=== PATIENT | female | born 1960 | race Two or more races ===

== ENCOUNTER → 2024-12-24 | Outpatient (CLI) | payer MEDICARE, MEDICAID, SELFPAY ==
--- NOTE | 2024-12-24 14:45 | XR_ITS ---
Examination: Breast ultrasound complete, bilateral Date and time of exam: December 24, 2024 1359 hours INDICATIONS: Family history breast cancer, sister, bilateral breast sonography January 28, 2024 right breast retroareolar nodule 6 mm, 5 mm left breast 3:00 nodule 9 mm retroareolar nodule 7 mm, 6 mm Technique: Real-time grayscale ultrasonographic imaging bilateral breasts, including all 4 quadrants as well as nipple retroareolar and axillary regions. Findings: Sonographic images right breast Benign cyst Retroareolar circumscribed nodule 7 x 5 mm Sonographic images left breast Benign cyst 1:00 nodule lobular margins 7 x 8 mm 2:00 nodule partially indistinct margins 8 x 9 mm IMPRESSION:: BI-RADS Category 4: Suspicious for malignancy Suspicious nodule 2:00 position left breast, 8 x 6 x 9 mm
== END | disposition home or self-care (01) ==
LOC: CDIM 13:43
PROVIDERS: Referring Provider Nurse Practitioner Family; Visit Provider Nurse Practitioner Family
DX: N63.21 Unspecified lump in the left breast, upper outer quadrant (principal)
CPT/HCPCS: 76641

== ENCOUNTER → 2025-03-02 | Outpatient (CLI) | payer MEDICARE, MEDICAID, SELFPAY ==
[2025-02-26 11:27] LABS: Basophils % (Auto) 1 % (0-2.5); Eosinophils # (Auto) 0.1 Thou/mm3 (0.0-0.5); Eosinophils % (Auto) 1 % (0-10); Hematocrit 39.2 % (36.0-46.0); Hemoglobin 13.2 g/dL (12.0-16.0); Immature Granulocytes % (Auto) 0 % (0-0); Immature Granulocytes Auto 0.01 Thou/mm3 (0.00-0.00); Lymphocytes # (Auto) 2.3 Thou/mm3 (1.0-4.8); Lymphocytes % (Auto) 40 % (10-50); Mean Corpuscular HGB Conc 33.7 g/dl (31.0-37.0); Mean Corpuscular Volume 92 fL (80-100); Monocytes # (Auto) 0.4 Thou/mm3 (0.0-0.8); Monocytes % (Auto) 7 % (0-12); Neutrophils % (Auto) 52 % (37-80); Nucleated Red Blood Cell % 0 /100 WBC (0); Platelet Count 208 Thou/mm3 (140-440); RDW Standard Deviation 43.7 fL (36.4-46.3); Red Blood Count 4.26 Miln/mm3 (4.00-5.20); White Blood Count 5.9 Thou/mm3 (3.6-11.0)
[2025-02-26 11:43] LABS: Partial Thromboplastin Time 29.9 Seconds (22.0-36.0)
--- NOTE | 2025-03-02 08:30 | XR_ITS ---
Examinations: Ultrasound-guided percutaneous breast biopsy, left 2:00 nodule Left breast sonography limited INDICATIONS: Left breast sonogram December 24, 2024 BI-RADS 4 suspicious nodule 2:00 position left breast. Exam date and time: March 02, 2025 0918 hours. Informed consent provided. Technique: A timeout was completed verifying correct patient, procedure, site, positioning, and special equipment if applicable Informed consent provided. The patient was placed in a supine position for the breast biopsy. Sonographic images of the breast were performed for localization of the suspicious nodule The patient's breast was prepped and draped in sterile fashion. Maximum sterile barrier technique, hand hygiene, ultrasound sterile technique 1% lidocaine was used to anesthetize the skin and breast adjacent to the suspicious nodule. Utilizing ultrasonographic guidance, 8 core biopsies were obtained of the suspicious nodule utilizing an 18-gauge BioPince needle. The specimens appears satisfactory. US guided breast biopsy marker placement. Estimated blood loss 3 cc. The patient tolerated the procedure well and there were no complications. Impression: Successful ultrasound-guided percutaneous breast biopsy, left breast 2:00 nodule. Ultrasound guided breast biopsy marker placement.
== END | disposition home or self-care (01) ==
LOC: SDIM 08:16
PROVIDERS: Radiology Diagnostic Radiology
DX: N62 Hypertrophy of breast (principal); R92.8 Other abnormal and inconclusive findings on diagnostic imaging of breast; Z01.812 Encounter for preprocedural laboratory examination
CPT/HCPCS: 19083; 36415; 85025; 85610; 85730; A4648

== ENCOUNTER 2025-04-08 08:54 | Outpatient (RCR) | payer MEDICARE, MEDICAID, SELFPAY ==
--- NOTE | 2025-04-25 23:55 | CTCFLWUP_ITS ---
Patient: JULIAN BOX : 1960 Page 3 of 5 FOLLOW UP NOTE DATE OF SERVICE: 04/08/2025 NAME: JULIAN BOX ACCOUNT: [id number] : 1960 AGE: 64 INTERVAL HISTORY: Julian, a female patient, presented for follow-up of a recently discovered breast mass. She had a mammogram showing dense breast tissue and ultrasound in December 2024 identifying a small mass. Biopsy revealed atypical ductal hyperplasia. Medical history includes dense breast tissue and pending pterygium surgery. She takes calcium and vitamin D supplements and recently discontinued baby aspirin. Assessment: Stage 0 atypical ductal hyperplasia. Plan includes referral for excisional biopsy, anastrozole therapy, calcium/vitamin D supplementation, and follow-up imaging at 6 months post-surgery and annually thereafter. ONCOLOGY HISTORY: DIAGNOSIS: ?CloneDiagnosis? Atypical ductal hyperplasia of breast left DATE OF DIAGNOSIS: 03/02/2025 STAGE/TNM: Atypical ductal hyperplasia ER 3+ LA positive TREATMENT HISTORY: Care?Plan Start?Date Cycle Day Intent HISTORY OF PRESENT ILLNESS: Subjective: Julina Nicolas, a female patient, presents for follow-up regarding a recently discovered breast mass. The patient reports noticing a change in her left breast in March 2024, approximately one year ago. She sought medical attention, and a mammogram revealed dense breast tissue. A subsequent ultrasound in December 2024 identified a small mass. The patient did not feel the mass herself; it was discovered through imaging. A biopsy was performed during the ultrasound, which revealed atypical ductal hyperplasia, described as abnormal cells in the milk ducts. The patient currently feels some discomfort in the breast, which is attributed to the biopsy procedure rather than cancer. The patient has a pending eye surgery scheduled for May 05 for pterygium. She is currently taking baby aspirin, though the reason for this medication is unclear. The patient reports no other significant symptoms or health concerns at this time. Medical History - Atypical ductal hyperplasia in the left breast - Dense breast tissue Surgical History - Breast biopsy in December 2024 Medications and Supplements - Baby aspirin - Discontinued. - Calcium - Taken with lunch or dinner. - Vitamin D - Taken with lunch or dinner. Family History - Mother: Age 65, no reported health issues Social History - Exercise: Patient is advised to walk for stress relief - Ethnicity: Review of Systems HEENT: Positive for pterygium in eye. Objective: Laboratory, Imaging, and Diagnostic Test Results - Mammogram (date not specified): Dense breast tissue detected - Ultrasound (December 2024): Mass identified in left breast - Biopsy (date not specified): Atypical ductal hyperplasia diagnosed OTHER MEDICAL HISTORY/CONDITIONS: DIABETES ?1990,??2004 ?Clone Other Med Hx? FAMILY HISTORY: Father:?DENIES Mother:?JOANNA Sibling:?SISTER?BR?CA?2024,?METS?TO?HIP Cancer?History:?PATERNAL?AUNT?UNKOWN?CA ?Clone Family Hx? 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 Tobacco?Use:?denies Drug?Note:?denies Social History Note:?, LIVES WITH DAUGHTER/SON ?Clone Social Hx? FISCAL ECONOMIST HISTORY: Menarche?-?Age:?12 Menopause:?50YRS Date?LMP:?09/06/2009 Date?of?last?pap?smear:?2023 Hormone?Use:?ORAL?6YRS :?11 Live?Births:?9 Age?1st?:?15 Date?Last?Mammogram:?07/19/2023 Nipple?discharge:?N-No ?Clone FISCAL ECONOMIST Hx? MEDICATIONS: 1. anastrozole - 1 mg 1 tab Daily 2. aspirin - 81 mg 1 tab Daily 3. Centrum Women - 18-400 mg-mcg 1 tab Daily 4. Maxitrol - 0.1 % Daily 5. metFORMIN - 1,000 mg 1 tab Twice a Day 6. Rybelsus - 7 mg 1 tab Daily 7. simvastatin - 40 mg 1 tab Daily?Palabra Meds? Medications Last Reconciled by Amy Elliott MA on 04/08/2025 ALLERGIES: REVIEW OF SYSTEMS: A complete 14-point review of systems was performed and is negative except as noted in interval history. PHYSICAL EXAMINATION: VITAL SIGNS: Temperature?98, B/P?134/75, Height?63?inches, Oxygen?Saturation?96% Weight?175?lbs PAIN: 0 - No pain ECOG Performance Status: 0 - Asymptomatic and fully active GENERAL APPEARANCE: Appears well, in no apparent distress, appropriately interactive. HEENT: Normocephalic, no temporal wasting, normal conjunctiva, no scleral icterus, normal hearing, lips without lesions, neck normal range of motion. CARDIOVASCULAR: Not assessed. PULMONARY: Normal respiratory effort, no respiratory distress or use of accessory muscles, speaking in full sentences, no tachypnea. EXTREMITIES: No pedal edema or cyanosis. SKIN: Normal skin appearance. NEUROLOGIC: Alert and oriented x4. PSHYCHIATRIC: Appropriate affect, mood normal, behavior normal, intact thought and speech. LABORATORY DATA: I have personally reviewed and interpreted each of the patient?s relevant lab tests, abnormal findings are below: Date ASSESSMENT/PLAN: Assessment and Plan: Julian Nicolas, female patient, presents with atypical ductal hyperplasia in the left breast detected through imaging in December 2024, following a mammogram that showed dense tissue. Atypical Ductal Hyperplasia (ADH) of Left Breast Assessment: Patient was found to have a small mass in the left breast through imaging studies. Mammogram showed dense breast tissue, prompting an ultrasound which revealed the mass. Subsequent biopsy confirmed atypical ductal hyperplasia, which is characterized by abnormal cells in the milk ducts. This condition is currently classified as stage 0, indicating it is not cancer at present. However, ADH is considered a precursor lesion with potential for progression to breast cancer. Plan: - Refer to surgeon for excisional biopsy of the affected area - Informed patient that sometimes cancer may be found upon tissue removal - Initiate hormone-blocking therapy with anastrozole - Patient can start before or after surgery - Advised to discontinue medication temporarily for surgery - Recommend daily calcium and vitamin D supplementation to mitigate potential bone and joint effects of anastrozole - Schedule follow-up appointment after tissue removal - Plan for mammogram and ultrasound surveillance: - First follow-up at 6 months post-surgery - Annual screening thereafter - Discussed potential need for radiation therapy if cancer is found post-surgery - Educated patient on breast cancer risk factors, including higher risk in women Pending Eye Surgery Assessment: Patient has a scheduled eye surgery on May 05 for pterygium, not cataracts as initially thought. Plan: - Proceed with scheduled pterygium surgery on May 05 - Recommend wearing sunglasses post-surgery to prevent recurrence - Advise obtaining single vision distance glasses for far vision as patient is unable to see further and having problem with transition glasses RETURN TO CLINIC: I reviewed the diagnosis, prognosis, and recommended treatment/procedure options with the patient (and/or their legal loan servicing representative), including the potential benefits, risks, side effects and alternative therapies. We also discussed the option of no treatment and the possibility of clinical trial participation, if applicable. All questions were addressed, and they demonstrated understanding. They provided informed consent to proceed with the proposed plan of care. BILLING AND COMPLIANCE: I reviewed external records from providers outside my specialty as summarized above. I spent a total of 50 minutes on this patient?s care on the day of their visit excluding time spent related to any billed procedures. This time includes time spent with the patient as well as time spent documenting in the medical record, reviewing patients records and tests, obtaining history, placing orders, communicating with other healthcare professionals, counseling the patient, family or caregiver, and/or care coordination for the diagnoses above. Electronically Signed by: Ambrocio Mendoza MD T: 11:53 PM CC: PCP: Sue Pires Referring: Sue Pires This document was completed utilizing speech recognition software. Grammatical errors, random word insertions, pronoun errors, and incomplete sentences are an occasional consequence of this system due to software limitations, ambient noise, and hardware issues. Any formal questions or concerns about the content, text or information contained within the body of this dictation should be directly addressed to the provider for clarification.
== END 2025-05-06 23:59 | disposition home or self-care (01) ==
LOC: SCTC 08:54
PROVIDERS: Visit Provider Internal Medicine Hematology & Oncology
DX: N60.92 Unspecified benign mammary dysplasia of left breast (principal); H11.009 Unspecified pterygium of unspecified eye
CPT/HCPCS: 99213; G0463

== ENCOUNTER 2025-06-08 06:55 | Day surgery (SDC) | payer MEDICARE, MEDICAID, SELFPAY ==
--- NOTE | 2025-06-04 11:00 | EKG_ITS ---
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
--- NOTE | 2025-06-04 11:04 | SUR.PREOP ---
Pt is schedule for US for needle localization at 0900
[2025-06-04 11:13] VITALS: BMI 30.2
[2025-06-04 12:21] LABS: Basophils # (Auto) 0.0 Thou/mm3 (0.0-0.2); Basophils % (Auto) 0 % (0-2.5); Eosinophils # (Auto) 0.1 Thou/mm3 (0.0-0.5); Eosinophils % (Auto) 1 % (0-10); Hematocrit 40.4 % (36.0-46.0); Hemoglobin 13.5 g/dL (12.0-16.0); Immature Granulocytes Auto 0.02 Thou/mm3 (0.00-0.00); Lymphocytes # (Auto) 2.5 Thou/mm3 (1.0-4.8); Lymphocytes % (Auto) 37 % (10-50); Mean Corpuscular HGB Conc 33.4 g/dl (31.0-37.0); Mean Corpuscular Hemoglobin 31.1 pg (25.0-35.0); Mean Corpuscular Volume 93 fL (80-100); Monocytes # (Auto) 0.6 Thou/mm3 (0.0-0.8); Monocytes % (Auto) 8 % (0-12); Neutrophils # (Auto) 3.7 Thou/mm3 (1.8-7.7); Neutrophils % (Auto) 54 % (37-80); Nucleated Red Blood Cell # 0.00 Thou/mm3 (0.00-0.00); Nucleated Red Blood Cell % 0 /100 WBC (0); Platelet Count 211 Thou/mm3 (140-440); RDW Standard Deviation 42.7 fL (36.4-46.3); Red Blood Count 4.34 Miln/mm3 (4.00-5.20); White Blood Count 6.9 Thou/mm3 (3.6-11.0)
[2025-06-04 12:28] LABS: INR 1.0 (0.9-1.3); Partial Thromboplastin Time 27.8 Seconds (22.0-36.0); Prothrombin Time 10.9 Seconds (9.0-12.2)
[2025-06-04 12:43] LABS: Alanine Aminotransferase 19 U/L (10-49); Albumin, Serum 4.6 gm/dL (3.4-4.8); Albumin/Globulin Ratio 1.9 (1.2-2.2); Alkaline Phosphatase 40 U/L (46-116); Anion Gap 13 (7-16); Aspartate Amino Transferase 24 U/L (0-34); BUN/Creatinine Ratio 13 Ratio (12-20); Bilirubin,Total 0.9 mg/dL (0.3-1.2); Blood Urea Nitrogen 12 mg/dL (9-23); Calcium 10.3 mg/dL (8.3-10.6); Calcium (Corrected) 10.3 mg/dL (8.5-10.1); Carbon Dioxide 27.3 mMol/L (20.0-31.0); Chloride 104 mMol/L (98-107); Creatinine (Component) 0.9 mg/dL (0.6-1.3); Estimated Creatinine Clearance 62.0 mL/min (>60); Globulin 2.4 gm/dL (2.3-3.5); Glucose 97 mg/dL (74-106); Osmolality,Calculated 286 (275-295); Potassium 3.8 mMol/L (3.4-5.1); Sodium 144 mMol/L (136-145); Total Protein 7.0 gm/dL (5.7-8.2); eGFR > 60 See Note
[2025-06-08] VITALS (7 sets, daily range): BP systolic 103–166; BP diastolic 63–79; PULSE 63–83; RESP 12–18; TEMP 36.3–37; O2SAT 95–98; BMI 29.8
--- NOTE | 2025-06-08 | XR_ITS ---
Examination: Mammogram breast tissue specimen TECHNIQUE: Single mammogram breast tissue specimen Date and time: June 08, 2025 1346 hours INDICATIONS: Postop excision biopsy positive for carcinoma lesion left breast 2:00 position FINDINGS: Breast biopsy marker is in the center of the breast specimen with margins IMPRESSION:: Breast biopsy marker is in the center of the breast tissue specimen with margins
--- NOTE | 2025-06-08 09:00 | XR_ITS ---
Examination: Ultrasound-guided needle localization biopsy positive for carcinoma lesion left breast 2:00 position Left breast sonography limited June 08, 2025 0947 hours INDICATIONS: Ultrasound-guided biopsy 2:00 nodule left breast March 02, 2025, positive for breast carcinoma, preop needle localization for surgery today. TECHNIQUE AND FINDINGS: Informed consent provided. Timeout performed. Limited sonographic images left breast 1% lidocaine administered for local anesthesia. Utilizing ultrasonographic guidance 5 cm Kopan's needle placed contiguous with the biopsy positive lesion in the 2:00 position left breast 1 cc methylene blue introduced Acquired introduced and needle withdrawn Estimated blood loss 0 cc IMPRESSION: Successful ultrasound-guided needle localization left breast 2:00 biopsy positive for carcinoma lesion
[2025-06-08] MEDS: METHYLENE BLUE 50 MG INFL (10:02)
--- NOTE | 2025-06-08 14:09 | SUR.PHASEI ---
pt received from OR in recovery bay 1. pt asleep but responds to voice, breathing unlabored on oxymask 8l. v/s stable. pt dressing to left breast cdi, breast binder in place. report received from Edgard STUART and Mary Anne MEADOWS.
--- NOTE | 2025-06-08 14:09 | PD.SUROPNT ---
Date of Procedure 06/08/25 Pre Op Diagnosis Atypical ductal hyperplasia over the upper and outer quadrant of the left breast at 2 o'clock position Post Op Diagnosis Same Procedure Guidewire localization and excision of atypical ductal hyperplasia at 2 o'clock position on the left breast Findings Patient is found to have no palpable lesion the guidewire was used to remove the suspected to the area Procedure Description After the patient was taken to the x-ray unit guidewire was placed by Dr. Bray then methylene blue was injected on the left breast. Patient was brought to the operating room given LMA anesthesia. Timeout was performed. The left breast and chest was washed with ChloraPrep solution and draped in a sterile manner. The guidewire was entering laterally towards the lesion. I made a circumareolar incision after injecting half percent Marcaine and dissected out the breast tissue. Patient was found to have no palpable lump but I used the methylene blue and I removed the tissue surrounding the guidewire. Specimen was sent to the x-ray and the marker applied during biopsy was in the center of the specimen. I removed additional tissues because there were methylene blue stained. This tissue will serve as an additional margin and it was sent separately from the main specimen. The bleeding points are controlled with cautery and to close the breast tissue with a 3-0 chromic interrupted sutures the skin was treated with half percent Marcaine and closed with 4-0 Monocryl subcuticular stitch. Dressing was applied with fluff and compression with breast binder. Patient tolerated procedure well. Anesthesia other Pathology / specimen Other (1. Specimen containing the marker #2 additional margins) Estimated Blood Loss 50 Surgeon Ekaterina Kelly MD Surgical Staff Operation Date: 06/08/25 12:30 Case Staff HOUSEKEEPER CAREGIVER: Nathanael Cedeno RNsecurity system engineer: Kathie Lott
--- NOTE | 2025-06-08 14:23 | SUR.PHASEI ---
pt able to tolerate oral fluids without difficulty swallowing or nausea/vomiting.
--- NOTE | 2025-06-08 15:13 | SUR.PHASEII ---
pt awake and alert, breathing unlabored on room air. pt dressing to left breast cdi. breast binder in place. pt able to ambulate to wheelchair with steady gait. d/c instructions given with daughter Sandy in room, all questions answered. pt d/c via wheelchair with all belongings.
== END 2025-06-08 15:13 | disposition home or self-care (01) ==
PROVIDERS: PCP Family Medicine; Referring Provider Surgery; Visit Provider Surgery
PROC: (CPT 19301; principal; 2025-06-08 12:15)
DX: D24.2 Benign neoplasm of left breast (principal); N60.92 Unspecified benign mammary dysplasia of left breast; N60.42 Mammary duct ectasia of left breast; Z01.810 Encounter for preprocedural cardiovascular examination
CPT/HCPCS: 19125; 36415; 76098; 80053; 85025; 85610; 85730; 93005; A4217; A4649; J0131; J1100; J2371; J2405; J2704; J3010; J3490; Q9968

== ENCOUNTER 2025-07-21 11:30 | Outpatient (RCR) | payer MEDICARE, MEDICAID, SELFPAY ==
--- NOTE | 2025-08-02 01:11 | CTCFLWUP_ITS ---
Patient: JULIAN BOX : 1960 Page 5 of 6 FOLLOW UP NOTE DATE OF SERVICE: 07/21/2025 NAME: JULIAN BOX ACCOUNT: [id number] : 1960 AGE: 65 INTERVAL HISTORY: Summary --Julian, a female patient, presented for follow-up of a recently discovered breast mass. She had a mammogram showing dense breast tissue and ultrasound in December 2024 identifying a small mass. Biopsy revealed atypical ductal hyperplasia. Patient was started on anastrozole and referred to surgery for excision. Patient had excision which did not reveal any cancer and no atypical ductal hyperplasia. Discussed with patient that she likely has a response from antiendocrine therapy and no cancer was found or premalignant lesions were found on her excision. Patient gave patient given an option to either continue antiendocrine therapy for 5 years or remain physically fit to reduce the risk of recurrence and follow-up with the mammograms ONCOLOGY HISTORY: DIAGNOSIS: Atypical ductal hyperplasia of breast left DATE OF DIAGNOSIS: 03/02/2025 STAGE/TNM: Atypical ductal hyperplasia ER 3+ AL positive TREATMENT HISTORY: Care?Plan Start?Date Cycle Day Intent HISTORY OF PRESENT ILLNESS: Subjective: Julian Nicolas, a female patient, presents for follow-up regarding a recently discovered breast mass. The patient reports noticing a change in her left breast in March 2024, approximately one year ago. She sought medical attention, and a mammogram revealed dense breast tissue. A subsequent ultrasound in December 2024 identified a small mass. The patient did not feel the mass herself; it was discovered through imaging. A biopsy was performed during the ultrasound, which revealed atypical ductal hyperplasia, described as abnormal cells in the milk ducts. The patient currently feels some discomfort in the breast, which is attributed to the biopsy procedure rather than cancer. The patient has a pending eye surgery scheduled for May 05 for pterygium. She is currently taking baby aspirin, though the reason for this medication is unclear. Ms. Box reports no other significant symptoms or health concerns at this time. Medical History - Atypical ductal hyperplasia in the left breast - Dense breast tissue Surgical History - Breast biopsy in December 2024 Medications and Supplements - Baby aspirin - Discontinued. - Calcium - Taken with lunch or dinner. - Vitamin D - Taken with lunch or dinner. Family History - Mother: Age 65, no reported health issues Social History - Exercise: Patient is advised to walk for stress relief - Ethnicity: Review of Systems HEENT: Positive for pterygium in eye. 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 anastrozole - 1 mg 1 tab Daily 2. aspirin - 81 mg 1 tab Daily 3. Centrum Women - 18-400 mg-mcg 1 tab Daily 4. Maxitrol - 0.1 % Daily 5. metFORMIN - 1,000 mg 1 tab Twice a Day 6. Rybelsus - 7 mg 1 tab Daily 7. simvastatin - 40 mg 1 tab Daily Medications Last Reconciled by Amy Cedillo MD on 07/21/2025 ALLERGIES: REVIEW OF SYSTEMS: A complete 14-point review of systems was performed and is negative except as noted in interval history. PHYSICAL EXAMINATION: VITAL SIGNS: Temperature?96.8, B/P?132/81, Oxygen?Saturation?97% Weight?175?lbs PAIN: 2 - Mild pain ECOG Performance Status: None GENERAL APPEARANCE: Appears well, in no apparent distress, appropriately interactive. HEENT: Normocephalic, no temporal wasting, normal conjunctiva, no scleral icterus, normal hearing, lips without lesions, neck normal range of motion. CARDIOVASCULAR: Not assessed. PULMONARY: Normal respiratory effort, no respiratory distress or use of accessory muscles, speaking in full sentences, no tachypnea. EXTREMITIES: No pedal edema or cyanosis. SKIN: Normal skin appearance. NEUROLOGIC: Alert and oriented x4. PSHYCHIATRIC: Appropriate affect, mood normal, behavior normal, intact thought and speech. LABORATORY DATA: I have personally reviewed and interpreted each of the patient?s relevant lab tests, abnormal findings are below: Date 06/04/25 ??WHITE?BLOOD?COUNT?(Thou/mm3) 6.9 ??RED?BLOOD?COUNT?(Miln/mm3) 4.34 ??HEMOGLOBIN?(gm/dl) 13.5 ??HEMATOCRIT?(%) 40.4 ??PLATELET?COUNT?(Thou/mm3) 211 ??NEUTROPHILS?%,?AUTO?(%) 54 ??LYMPH?%,?AUTO?(%) 37 ??NEUTROPHILS,?AUTO?(Thou/mm3) 3.7 ??GLUCOSE,RANDOM?(mg/dL) 97 ??BLOOD?UREA?NITROGEN?(mg/dL) 12 ??CREATININE?(mg/dL) 0.90 ??SODIUM?(mmol/L) 144 ??POTASSIUM?(mmol/L) 3.8 ??CHLORIDE?(mmol/L) 104 ??CrCl?(CandG)?(ml/min) 61.49 ??AST/SGOT?(Unit/L) 24 ??ALT/SGPT?(Unit/L) 19 ??ALKALINE?PHOSPHATASE?(Unit/L) 40?L ??BILIRUBIN,?TOTAL?(mg/dL) 0.9 ??PROTEIN?TOTAL?(gm/dl) 7.0 ??ALBUMIN,?SERUM?(gm/dl) 4.6 ??GLOBULIN?(gm/dl) 2.4 ??ALBUMIN/GLOBULIN?RATIO 1.9 ??CALCIUM,?SERUM?(mg/dL) 10.3 ??CALCIUM?SERUM?(CORRECTED)?(mg/dL) 10.3?H ASSESSMENT/PLAN: Julian Nicolas, female patient, presents with atypical ductal hyperplasia in the left breast detected through imaging in December 2024, following a mammogram that showed dense tissue. Atypical Ductal Hyperplasia (ADH) of Left Breast Assessment: Patient was found to have a small mass in the left breast through imaging studies. Mammogram showed dense breast tissue, prompting an ultrasound which revealed the mass. Subsequent biopsy confirmed atypical ductal hyperplasia, which is characterized by abnormal cells in the milk ducts. This condition is currently classified as stage 0, indicating it is not cancer at present. However, ADH is considered a precursor lesion with potential for progression to breast cancer. Patient has been on antiendocrine therapy for about 4 months before she underwent excision of the lesion Excision negative for any kind of ductal hyperplasia or premalignant lesions Patient likely had response to antiendocrine therapy No residual tumor Advised to continue antiendocrine therapy for 5 years along with calcium and vitamin D and keep physically fit ORDERS: Order # Description [id number] MD Follow Up 6 Month [id number] DXA L-Spine and Hip RETURN TO CLINIC: I reviewed the diagnosis, prognosis, and recommended treatment/procedure options with the patient (and/or their legal account representative), including the potential benefits, risks, side effects and alternative therapies. We also discussed the option of no treatment and the possibility of clinical trial participation, if applicable. All questions were addressed, and they demonstrated understanding. They provided informed consent to proceed with the proposed plan of care. BILLING AND COMPLIANCE: I reviewed external records from providers outside my specialty as summarized above. I spent a total of 50 minutes on this patient?s care on the day of their visit excluding time spent related to any billed procedures. This time includes time spent with the patient as well as time spent documenting in the medical record, reviewing patients records and tests, obtaining history, placing orders, communicating with other healthcare professionals, counseling the patient, family or caregiver, and/or care coordination for the diagnoses above. Electronically Signed by: {Object.Sanct_ID*PnP.NameFL@M}, {Object.Sanct_ID*PnP.Suffix@U} D: {Object.Sanct_Date} T: {Object.Sanct_Time} CC: PCP: Sue Pires Referring: Sue Pires This document was completed utilizing speech recognition software. Grammatical errors, random word insertions, pronoun errors, and incomplete sentences are an occasional consequence of this system due to software limitations, ambient noise, and hardware issues. Any formal questions or concerns about the content, text or information contained within the body of this dictation should be directly addressed to the provider for clarification.
== END 2025-08-06 23:59 | disposition home or self-care (01) ==
LOC: SCTC 11:30
PROVIDERS: Visit Provider Internal Medicine Hematology & Oncology
DX: N60.92 Unspecified benign mammary dysplasia of left breast (principal); Z79.811 Long term (current) use of aromatase inhibitors
CPT/HCPCS: 99212; G0463